=== PATIENT | female | born 1965 | race Caucasian/White ===

== ENCOUNTER 2021-05-11 11:24 | Emergency (ER) | payer BC ==
[~2021-05-11 11:24] MED LIST: CIPROFLOXACIN500 MG PO; TRAMADOL HCL50 MG PO; VICODIN 500 MG-1 TAB PO
[2021-05-11] MEDS ORDERED: NAPROXEN250 MG PO (13:24)
[2021-05-11] MEDS ORDERED: TYLENOL325 M1 PO (13:24)
[2021-05-11] MEDS ORDERED: VOLTAREN ARTHRI20 GM T (13:26)
== END 2021-05-11 13:37 | disposition home or self-care (01) ==
LOC: ED 11:24
DX: S89.91XA Unspecified injury of right lower leg, initial encounter (principal); W18.39XA Other fall on same level, initial encounter; Y93.89 Activity, other specified; Y92.89 Other specified places as the place of occurrence of the external cause; Y99.8 Other external cause status